=== PATIENT | male | born 1945 | race Caucasian/White ===

== ENCOUNTER 2016-08-16 02:03 | Inpatient (IN) ==
[2016-08-15 10:21] LABS: BASO% 0.7 % (0.0-0.8); EOS# 0.15 X1000 (0.0-0.7); EOS% 1.6 % (0.0-10.0); HEMATOCRIT 38.1 % (42.0-52.0); HEMOGLOBIN 11.9 g/dL (14.0-18.0); IMM GRAN# 0.02 X1000 (0.0-0.04); IMM GRAN% 0.2 % (0.0-0.5); LYMPH% 24.4 % (20.5-51.1); MANUAL DIFF NEEDED? YES; MCHC 31.2 g/dL (33-37); MCV 83.2 FL (81-99); MONO# 1.44 X1000 (0.11-0.59); MONO% 15.3 % (1.7-9.3); MPV 9.6 FL (7.4-10.4); NEUT% 57.8 % (42.2-75.2); PLT 413 X1000 (130-400); RBC 4.58 XMIL (4.7-6.1)
[2016-08-15 10:35] LABS: EOS 3 % (1-10); LYMPHS 22 % (21-51); MONO 6 % (1-9)
--- NOTE | 2016-08-15 10:38 | EKG Report ---
Test Performed on : 08/15/2016 09:48:02 AM Test Reason : PAT Blood Pressure : / mmHG Vent. Rate : 056 BPM Atrial Rate : 056 BPM P-R Int : 116 ms QRS Dur : 090 ms QT Int : 406 ms P-R-T Axes : 049 014 060 degrees QTc Int : 391 ms Sinus bradycardia. Low voltage QRS Borderline ECG No previous ECGs available Confirmed by Jared VALDEZ, Kj Azul ([id number]) on 08/15/2016 4:49:02 PM
[2016-08-15 11:05] LABS: AGAP 12; BUN 13 mg/dL (8-22); CALCIUM 9.1 mg/dL (8.8-10.2); CHLORIDE 98 mmol/L (98-107); COSMO 274; SODIUM 137 mmol/L (136-145); TCO2 27 mmol/L (25-35)
[2016-08-16] MEDS ORDERED: PEPCID ONE ×2 (09:40→10:05)
[2016-08-16] MEDS ORDERED: REGLAN ONE ×2 (09:40→10:04)
[2016-08-16] MEDS ORDERED: KEFZOL 1 GM/D5W 50 ML ONE (09:40)
[2016-08-16] MEDS ORDERED: LR 1,000 ML ONE (09:40)
[2016-08-16] MEDS ORDERED: NORCO-10 ONE (11:21)
[2016-08-16] MEDS ORDERED: XYLOCAINE 1%/EPI 1:100,000 ONE (11:34)
[2016-08-16] MEDS ORDERED: NS 250 ML ONE (11:34)
[2016-08-16] MEDS ORDERED: KEFZOL ONE (11:34)
[2016-08-16] MEDS ORDERED: HEPARIN ONE (11:34)
[2016-08-16] MEDS ORDERED: DIPRIVAN 1% ONE (13:23)
[2016-08-16] MEDS: MORPHINE ONE ×2 (13:30→13:48)
[2016-08-16] MEDS ORDERED: DECADRON ONE (13:44)
[2016-08-16] MEDS ORDERED: LR 2,000 ML ONE (13:44)
[2016-08-16] MEDS ORDERED: XYLOCAINE-MPF 2% ONE (13:44)
[2016-08-16] MEDS ORDERED: QUELICIN (DOSE) ONE (13:44)
[2016-08-16] MEDS ORDERED: EPHEDRINE ONE (13:44)
[2016-08-16] MEDS ORDERED: ZOFRAN ONE (13:44)
[2016-08-16] MEDS ORDERED: MORPHINE ONE ×2 (14:12→14:27)
[2016-08-16] MEDS ORDERED: NORCO-10 PO PRN (14:47)
--- NOTE | 2016-08-16 14:47 | OPERATIVE NOTE ---
PROCEDURE DATE: 08/16/2016 PROCEDURE PERFORMED: Right subclavian port placement; placement of Witzel feeding jejunostomy (#12 Red Rodriguez catheter). SURGEON: Surinder Nichols MD ORNAMENTAL METAL WORKER HELPER: Jr PREOPERATIVE DIAGNOSIS: Cancer of the distal. POSTOPERATIVE DIAGNOSIS: Cancer of the distal. 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 He now is being setup for neoadjuvant therapy. DESCRIPTION OF PROCEDURE: Satisfactory general anesthesia was achieved. The right side of the neck and upper anterior chest were prepped and draped in a sterile fashion. We placed the patient in Trendelenburg. We anesthetized the skin of the deltopectoral groove. We incised the skin, developed subcutaneous pocket that would admit the port. We accessed the right subclavian vein on the first stick and without difficulty. We passed the guidewire into the superior vena cava under fluoroscopic guidance. We then passed the dilator and introducer sheath over the guidewire, removed the dilator and guidewire, and introduced the 9.6-Italian single-lumen silicone catheter through the sheath into the superior vena cava to the junction of right atrium. We cut the catheter to the appropriate length, passed it on the stem of the port, and locked it in position. We placed the port within the pocket. We used a 2-0 silk through the subcutaneous tissue and then the hole in the rim of the port and secured it. We irrigated out the port pocket with Kefzol- impregnated saline. We placed 3-0 Polysorb in the subcutaneous tissue. We then accessed the port. It aspirated and irrigated easily. We gave the patient 4 mL of Hep-Lock. We closed the skin with a 4-0 Polysorb subcuticular stitch. Telfa and a sterile OpSite was applied. We then prepped and draped in the abdominal wall. I changed gown and gloves. A small epigastric midline incision was made to just beside the umbilicus. We carried our incision through the subcutaneous tissue through the midline fascia. Upon entering the abdominal cavity, we identified the ligament of Treitz and came downstream for about 10-15 cm, and made a 3-0 silk pursestring stitch in the antimesenteric border of the small bowel. We introduced a 12 Red Rodriguez catheter through the left anterior abdominal wall. I cut off the tip. I then cauterized the hole in the midst of the pursestring into the lumen of the small bowel. We introduced the #12 Red Rodriguez catheter through that hole into the bowel and passed it distally. We secured the pursestring. We then used a 3-0 silks in a Lembert fashion to form a Witzel tunnel. We then brought the tube exit site from the bowel up to the anterior abdominal wall and placed 2-0 silks at 12 o'clock, 3 o'clock, 6 o'clock, and 9 o'clock to hold the small bowel up to the anterior abdominal wall and to completely excluded exposure of the Red Rodriguez catheter. The catheter was secured at the skin level externally with a 2-0 silk. We then closed the peritoneum with 2-0 chromic. We closed the fascia with a #1 PDS. We injected 0.25 Marcaine with epinephrine in the subcutaneous tissue. We then closed the skin with a 4-0 Polysorb subcuticular stitch. Sterile dressing was applied. He tolerated it well, was sent to the recovery room in satisfactory condition.
[2016-08-16] MEDS: NS 1,000 ML IV SCH (14:59)
[2016-08-16] MEDS: DILAUDID IV PRN ×2 (17:05→22:16)
[2016-08-17] MEDS: DILAUDID IV PRN ×8 (00:58→22:05)
[2016-08-17] MEDS: NS 1,000 ML IV SCH ×2 (03:47→16:16)
[2016-08-17] MEDS ORDERED: XYLOCAINE 2% JELLY UROJECT UR ONE (07:45)
--- NOTE | 2016-08-17 13:23 | PROGRESS NOTE ---
DATE: 08/17/2016 SUBJECTIVE: Feels okay. Some intermittent abdominal wall spasms. He has also had some urinary retention overnight with elevated postvoid residuals. He is urinating small amounts but is unable to completely empty his bladder. No flatus yet. He is tolerating some liquids. PHYSICAL EXAMINATION: He is afebrile. No tachycardia. Blood pressure 140/67, 90% on room air. He is alert, oriented.Abdomen: Soft, appropriately tender. Incision is clean, dry, intact. His right port site is clean. Does have some fullness of the suprapubic region. I have reviewed his labs. Nothing new today. ASSESSMENT/PLAN: 70-year-old male with a partially obstructing esophageal cancer, now status post port with J-tube placement. Tolerating some liquids p.o. Unfortunately he does have some urinary retention. The nurses have tried placing a catheter early this morning with no success. I have also attempted to place a 16-Namibian coude catheter at bedside, meet significant resistance. He does appear to have a urethral stricture but this was able to be passed without trouble with the coude catheter but was unable to pass the prostatic urethra. He states he does have elevated PSA with some urine symptoms at home but it has never been evaluated by a urologist. Will continue liquids from above as tolerated. Also talked with urology regarding placement of a Choi catheter and other indicated procedures for bladder decompression and he has plans to come evaluate the patient and manage these issues. Otherwise we will continue supportive care. Monitor him through the weekend. MTDD
[2016-08-17] MEDS: LOVENOX SUBQ SCH (16:13)
--- NOTE | 2016-08-17 18:35 | CONSULTATION ---
DATE OF CONSULTATION: 08/17/2016 CONSULTING PHYSICIAN: Dr. Biswas with general surgery. CONSULTATION FOR: Inability to place Hcoi catheter. HISTORY OF PRESENT ILLNESS: A 70-year-old male who underwent insertion of the port and jejunostomy tube by Dr. Nichols on 08/16/2016. This was done due to the diagnosis of esophageal cancer in preparation for neoadjuvant chemotherapy. Patient was observed overnight. He reportedly has not voided with exception to occasional drops. Nursing staff tried to insert a Choi multiple times followed by Dr. Biswas without success. Urology was consulted. Patient reports longstanding history of enlarged prostate. He reports weak stream, dribbling postvoid, nocturia x3, sensation of incomplete emptying. He was seen by Dr. Iglesias who is his family physician and reports being placed on Flomax approximately 3 weeks ago. He reports he had to discontinue Flomax due to this recent diagnosis of esophageal problems. He denies gross hematuria, dysuria, recurrent UTIs. PAST MEDICAL HISTORY: Esophageal cancer, BPH. PAST SURGICAL HISTORY: 1. EGD. 2. Insertion of chemotherapy port and jejunostomy tube. ALLERGIES: No known drug allergies. HOME MEDICATIONS: Pain medication p.r.n. FAMILY HISTORY: Negative for malignancies. SOCIAL HISTORY: Former smoker, former drinker, denies illicit drugs. REVIEW OF SYSTEMS: Reviewed 12 systems negative with exception to the HPI as well as difficulties swallowing and pain on swallowing. PHYSICAL EXAMINATION: Vital signs: T 98.2 degrees, P 83, BP 140/67. General: No acute distress. Pleasant male. HEENT: Normocephalic, atraumatic. Cardiovascular: Regular rhythm. Pulmonary: Bilateral breath sounds. Abdomen: Appropriately tender at the side of the jejunostomy tube nondistended. : Normal phallus, normal meatus, testes descended bilaterally, perineum without abnormalities, bladder is nontender to palpation. Lymphatic: No groin lymphadenopathy. Dermatologic: No obvious skin rashes. Neurologic: Alert and oriented x3. Psychiatric: Appropriate mood and affect. Rectal: Digital rectal examination declined per patient request. PERTINENT LABS: White cell count of 9000, creatinine of 0.8. PERTINENT IMAGES: None. ASSESSMENT: A 70-year-old male with longstanding history of weak stream, incomplete emptying and postvoid dribbling. His genitals were prepped and draped sterile fashion. I have attempted to 1st place a 14-Irish silicone catheter with suspicion for urethral stricture since he has had multiple catheters placed by the nursing staff as well as a attempted placement by Dr. Biswas. He had blood in the meatus, resistance was met at the level of the prostatic urethra, I withdrew the catheter. I then used Bard difficult catheterization kit and used Glidewire to advance it into the bladder. I placed 18-Irish Councill tip catheter over the Glidewire into the bladder with return of clear urine. He did have blood on the meatus but not in the urine once the catheter was placed. Immediately 600 mL were drained, 10 mL of sterile water were inserted into the balloon. Choi catheter was placed to gravity drainage. PLAN: 1. He likely had longstanding BPH and possibly urethral strictures resistance was met at the penile urethra upon introduction of 18-Irish Choi catheter. I have discussed with the patient that he would benefit from cystoscopic evaluation after discharge which we can set up in the near future. I have recommended he keep the catheter for now. 2. Continue Flomax. Thank you for consultation.
[2016-08-17] MEDS: ZOFRAN IV PRN (22:05)
[2016-08-18] MEDS: DILAUDID IV PRN ×6 (00:29→22:17)
[2016-08-18] MEDS: ZOFRAN IV PRN ×4 (07:25→22:17)
[2016-08-18] MEDS: NS 1,000 ML IV SCH ×3 (07:25→20:45)
[2016-08-18] MEDS: LOVENOX SUBQ SCH ×2 (09:23→11:38)
--- NOTE | 2016-08-18 13:04 | PROGRESS NOTE ---
DATE: 08/18/2016 SUBJECTIVE: Had a Choi catheter placed by Dr. Jurado yesterday and clear urine is draining. Otherwise he is sleeping this morning. No events overnight. OBJECTIVE: Vital signs: He is afebrile. No tachycardia. Blood pressure 130/80, oxygen saturation 94% on room air. General: He is resting. Abdomen: Soft. There is clear urine in his Choi. LABS: No new labs. ASSESSMENT: This is a 70-year-old male with esophageal cancer status post Mediport and J-tube. Did have some urinary retention related to BPH. He is on Flomax. Has Choi catheter in place that Dr. Jurado is managing. Otherwise, we will continue enteral nutrition from above.
--- NOTE | 2016-08-18 16:21 | PROGRESS NOTE ---
DATE: 08/18/2016 SUBJECTIVE: Mr. Overton reported decent night overnight. He reports that he is more comfortable now that the Choi catheter is in place. He denies significant burning or penile pain. OBJECTIVE: Vital Signs: T 98.4 degrees, P 79, BP 141/76. He had documented 2700 mL of urine output. General: No acute distress. Abdomen: Nontender to palpation. Nondistended. : Choi catheter in place draining straw-colored urine. PERTINENT LABS: None today. ASSESSMENT: A 70-year-old male with esophageal cancer who was in urinary retention and likely has a urethral stricture. He currently has Choi catheter in place. I have discussed with the patient again that he would need cystoscopic evaluation after discharge to rule out a significant urethral stricture. PLAN: 1. Continue Flomax. 2. Continue Choi catheter. 3. Will follow.
[2016-08-19] MEDS: DILAUDID IV PRN ×6 (00:44→22:33)
[2016-08-19] MEDS: ZOFRAN IV PRN (02:36)
[2016-08-19] MEDS: NS 1,000 ML IV SCH ×3 (06:20→17:04)
[2016-08-19] MEDS: LOVENOX SUBQ SCH (11:00)
[2016-08-19] MEDS ORDERED: SODIUM CHLORIDE 0.9% 0 ML ONE (12:15)
[2016-08-20] MEDS: DILAUDID IV PRN ×4 (03:04→14:53)
[2016-08-20] MEDS: NS 1,000 ML IV SCH (04:31)
[2016-08-20] MEDS: LOVENOX SUBQ SCH (09:33)
[2016-08-20 16:54] VITALS: BP 128/67
--- NOTE | 2016-08-21 11:32 | DISCHARGE SUMMARY ---
ADMISSION DATE: 08/16/2016 DISCHARGE DATE: 08/20/2016 PRIMARY DISCHARGE DIAGNOSIS: Distal obstructive cancer of the esophagus. OTHER DIAGNOSIS: Chronic obstructive pulmonary disease PRIMARY PROCEDURE: Was a feeding jejunostomy and a right subclavian port placement done on 08/16/2016. This is an unfortunate 70-year-old white male, who was sent with an esophageal tumor distally. SENIOR [employer] CONSULTANT: Norma Garcia MD ONCOLOGIST: Jose Prieto MD The tumor is near obstructive and biopsy proven to be adenocarcinoma. He is going to undergo neoadjuvant therapy and needs an avenue for alimentation. HOSPITAL COURSE: Following his admission, he underwent the procedure noted above. Postoperatively, he did generally well. He did have some vomiting, however. We were able to start the tube feedings on the third postoperative day after his ileus had resolved. He tolerated with Jevity at 25 mL/h. By the fourth postoperative day his nausea and vomiting had resolved and he was tolerating his tube feedings, and was felt to be discharged. His wounds were fine. Home Care was contacted for home J tube feedings and we will discharge him with 25 mL/h continuous feeding with a target of 50 mL/h. He will return to the office in followup.
== END 2016-08-20 19:06 | disposition home health service (06) | DRG 376 ==
LOC: SURHOLD 02:03 → EDSTATUS 13:00 → 4N 14:43 → 3N 08-19 11:38
PROVIDERS: ADMIT Surgery; ATTEND Surgery
PROC: 0DHA0UZ Insertion of Feeding Device into Jejunum, Open Approach (ICD-10-PCS; 2016-08-16)
PROC: B518ZZA Fluoroscopy of Superior Vena Cava, Guidance (ICD-10-PCS; 2016-08-16)
PROC: 0JH63XZ Insertion of Tunneled Vascular Access Device into Chest Subcutaneous Tissue and Fascia, Percutaneous Approach (ICD-10-PCS; principal; 2016-08-16 11:58)
PROC: 02HV33Z Insertion of Infusion Device into Superior Vena Cava, Percutaneous Approach (ICD-10-PCS; 2016-08-16 11:58)
PROC: 3E0H76Z Introduction of Nutritional Substance into Lower GI, Via Natural or Artificial Opening (ICD-10-PCS; 2016-08-19)
DX: C15.5 Malignant neoplasm of lower third of esophagus (principal); K22.2 Esophageal obstruction; K21.9 Gastro-esophageal reflux disease without esophagitis; K40.90 Unilateral inguinal hernia, without obstruction or gangrene, not specified as recurrent; Z82.49 Family history of ischemic heart disease and other diseases of the circulatory system; Z80.9 Family history of malignant neoplasm, unspecified; Z87.891 Personal history of nicotine dependence; N40.1 Benign prostatic hyperplasia with lower urinary tract symptoms; R39.14 Feeling of incomplete bladder emptying; R35.1 Nocturia; R33.8 Other retention of urine; R39.12 Poor urinary stream; N39.43 Post-void dribbling; N35.9 Urethral stricture, unspecified
CPT/HCPCS: 77001; 80048; 85025; 93005; 93010; C1788; J0330; J0690; J1100; J1170; J1650; J2270; J2405; J2765; J7030; J7050; J7120; S0028